=== PATIENT | female | born 1955 | race Caucasian/White ===

== ENCOUNTER → 2019-07-22 | Outpatient (CLI) | payer OTHER ==
[2019-07-22 16:09] LABS: BASO % 0.5 % (0.0-1.0); EOS # 0.3 10^3/uL (0.0-0.5); EOS % 3.9 % (0.0-3.0); HEMATOCRIT 44.7 % (36.0-47.0); HEMOGLOBIN 15.2 g/dl (12.0-15.5); LYMPH # 1.6 10^3/uL (1.5-5.0); LYMPH % 20.3 % (24.0-44.0); MEAN CORPUSCULAR HEMOGLOBIN 31.4 pg (27.0-33.0); MEAN CORPUSCULAR VOLUME 92.4 fl (80.0-96.0); MONO # 0.7 10^3/uL (0.0-0.8); MONO % 8.4 % (0.0-5.0); NEUTROPHILS # 5.2 10^3/uL (1.5-8.5); NEUTROPHILS % 66.6 % (36.0-66.0); PLATELET COUNT, AUTOMATED 345 10^3/uL (150-450); RED BLOOD COUNT 4.84 10^6/uL (4.00-5.40); WHITE BLOOD COUNT 7.7 10^3/uL (4.0-10.0)
[2019-07-22 16:26] LABS: ALBUMIN 3.9 GM/DL (3.2-5.2); ALT/SGPT 21 U/L (12-78); BILIRUBIN,TOTAL 0.5 MG/DL (0.2-1.0); BLOOD UREA NITROGEN 13 MG/DL (7-18); CALCIUM LEVEL 9.1 MG/DL (8.8-10.2); CARBON DIOXIDE LEVEL 31 MEQ/L (21-32); CHLORIDE LEVEL 106 MEQ/L (98-107); CREATININE FOR GFR 0.69 MG/DL (0.55-1.30); GLOMERULAR FILTRATION RATE > 60.0 (>45); GLUCOSE, FASTING 90 MG/DL (70-100); SODIUM LEVEL 141 MEQ/L (136-145); TOTAL PROTEIN 7.8 GM/DL (6.4-8.2)
--- NOTE | 2019-07-23 04:51 | REPPI ---
Clinical: Tuberculosis. Technique: PA and lateral. Comparison: None. Findings: Cardiomegaly is suggested. The lung gray demonstrate diffuse chronic-appearing interstitial changes along with linear opacity in the left mid lung zone and subtle basilar opacities (left greater than right). No effusion. No pneumothorax. Skeletal structures intact. Impression: No prior examination available for comparison. Cardiomegaly and bilateral pulmonary opacities are suspected. Correlation with prior examination is recommended if available or contrast enhanced chest CT for further investigation. Electronically Signed by Srinivas Kaufman MD 07/23/2019 04:43 A
== END ==
LOC: M PLAIMG 13:28
PROVIDERS: ATTEND Internal Medicine Infectious Disease
DX: Z22.7 Latent tuberculosis (principal)